=== PATIENT | female | born 1960 | race Caucasian/White ===

== ENCOUNTER 2019-07-26 05:05 | Day surgery (SDC) | payer BC ==
[~2019-07-26] VITALS: Ht 162.6 cm; Wt 92.1 kg
[2019-07-26] VITALS (9 sets, daily range): BP systolic 102–143; BP diastolic 63–85
[2019-07-26] MEDS ORDERED: normal saline 1,000 ML IV SCH (05:40)
[2019-07-26] MEDS ORDERED: LORazepam 0.5 MG tablet PO PRN (05:40)
[2019-07-26] MEDS ORDERED: diphenhydrAMINE 25mg capsule PO PRN (05:40)
[2019-07-26 05:58] LABS: PARTIAL THROMBOPLASTIN TIME 27 SECONDS (22-32)
[2019-07-26 06:01] LABS: BASOPHILS # (AUTO) 0.1 X10'3 (0-0.2); BASOPHILS % (AUTO) 0.8 % (0-1); EOSINOPHILS # (AUTO) 0.3 X10'3 (0-0.9); EOSINOPHILS % (AUTO) 3.3 % (0-6); HEMATOCRIT 45.2 % (35.0-45.0); HEMOGLOBIN 15.7 g/dl (12.0-16.0); LYMPHOCYTES # (AUTO) 4.8 X10'3 (1.1-4.8); LYMPHOCYTES % (AUTO) 45.7 % (21-51); MEAN CORPUSCULAR HEMOGLOBIN 32.1 PG (27.0-31.0); MEAN CORPUSCULAR HGB CONC 34.7 g/dL (33.0-36.5); MEAN CORPUSCULAR VOLUME 92.4 FL (78-98); MONOCYTES # (AUTO) 0.8 X10'3 (0-0.9); MONOCYTES % (AUTO) 7.2 % (2-12); NEUTROPHILS # (AUTO) 4.5 X10'3 (1.8-7.7); PLATELET COUNT 242 X10'3 (140-440); RED BLOOD COUNT 4.89 X10'6 (4.20-5.60); RED CELL DISTRIBUTION WIDTH 13.2 % (11.5-14.5); WHITE BLOOD COUNT 10.6 X10'3 (4.5-11.0)
[2019-07-26] MEDS ORDERED: midazolam 2 mg/2 ml injection ONE (06:07)
[2019-07-26] MEDS ORDERED: METF500T PO (06:07)
[2019-07-26] MEDS ORDERED: LEVO75TA PO (06:07)
[2019-07-26] MEDS ORDERED: HYDR-4353 PO (06:07)
[2019-07-26] MEDS ORDERED: FE F PO (06:07)
[2019-07-26] MEDS ORDERED: iohexol 350MG/ML 100ml bottle IV ONE (06:07)
[2019-07-26] MEDS ORDERED: ALBU18HF2 IH (06:07)
[2019-07-26] MEDS ORDERED: fentaNYL/PF 50MCG/1 ML 2ML syringe ONE (06:07)
[2019-07-26] MEDS ORDERED: LIDOcaine 1% (10mg/ml)w/preservative injection 20ml MDV ONE (06:07)
[2019-07-26] MEDS ORDERED: ASPI-1053 PO (06:07)
[2019-07-26] MEDS ORDERED: ROSU10TA2 PO (06:07)
[2019-07-26] MEDS ORDERED: DILT120T PEG (06:07)
[2019-07-26] MEDS ORDERED: ADV50250 IH (06:07)
[2019-07-26] MEDS ORDERED: NITR0.4T51 SL (06:07)
[2019-07-26 06:13] LABS: ALBUMIN 4.1 G/DL (3.4-5.0); ANION GAP 11 (8-16); BLOOD UREA NITROGEN 14 MG/DL (7-18); BUN/CREATININE RATIO 15.6 (6.6-38.0); CHLORIDE 106 MMOL/L (99-107); GLUCOSE 203 MG/DL (70-104); POTASSIUM 3.6 MMOL/L (3.5-5.1); SODIUM 140 MMOL/L (135-145); eGFR 65 ML/MIN
[2019-07-26] MEDS ORDERED: ondansetron/PF 4mg/2ml inj IV PRN (07:15)
[2019-07-26] MEDS ORDERED: OXAZEpam 15mg capsule PO PRN (07:20)
[2019-07-26] MEDS ORDERED: proCHLORperazine 10 MG/2 ml inj IV PRN (07:20)
[2019-07-26] MEDS ORDERED: acetaminophen 325mg tablet PO PRN (07:20)
== END 2019-07-26 11:00 | disposition home or self-care (01) ==
LOC: SSTAY O 05:05
PROVIDERS: ATTEND Internal Medicine Interventional Cardiology
DX: R07.9 Chest pain, unspecified (principal); I25.10 Atherosclerotic heart disease of native coronary artery without angina pectoris; J45.909 Unspecified asthma, uncomplicated; E11.9 Type 2 diabetes mellitus without complications; I10 Essential (primary) hypertension; Z79.899 Other long term (current) drug therapy; Z79.84 Long term (current) use of oral hypoglycemic drugs; Z79.82 Long term (current) use of aspirin; Z83.6 Family history of other diseases of the respiratory system; Z83.3 Family history of diabetes mellitus
CPT/HCPCS: 36415; 80048; 82948; 85025; 85610; 85730; 93005; 93458; 99152; C1769; J1644; J2001; J2250; J3010; J7030; Q0163; Q9967; A6258